=== PATIENT | female | born 1955 | race Caucasian/White ===

== ENCOUNTER 2019-05-15 17:15 | Emergency (ER) | payer OTHER ==
[~2019-05-15] VITALS: Ht 165.1 cm; Wt 44.5 kg
[~2019-05-15 17:15] MED LIST: GABAPENTIN400 M1 PO; MED4 PO; [UNRECOGNIZED DRUG - OTHER] PO
[2019-05-15 17:21] VITALS: BP 155/87
== END 2019-05-15 18:11 | disposition home or self-care (01) ==
LOC: ED 17:15
DX: S01.91XA Laceration without foreign body of unspecified part of head, initial encounter (principal); G89.29 Other chronic pain; M54.9 Dorsalgia, unspecified; W22.8XXA Striking against or struck by other objects, initial encounter; Y93.89 Activity, other specified; Y92.89 Other specified places as the place of occurrence of the external cause; Y99.8 Other external cause status